=== PATIENT | male | born 1960 | race Two or more races ===

== ENCOUNTER → 2016-05-29 | Day surgery (SDC) | payer BC ==
[~2016-05-29] MED LIST: ACETAMINOPHEN 1000 MG/100 ML VIAL IV ONE; BUPIVACAINE/EPINEPHRINE 0.25% 50 ML VIAL ONE; KETOROLAC TROMETHAMINE 30 MG/ML (IVP) VIAL IV PUSH ONE; LACTATED RINGER'S 1000 ML INJ 1,000 ML ONE; LIDOCAINE 1%/EPINEPHrine 1:100,000 SOLN 20 ML VIAL ONE; MIDAZOLAM HCL 2 MG/2 ML VIAL ONE; ONDANSETRON HCL 4 MG/2 ML VIAL IV PUSH ONE; PROPOFOL 200 MG/20 ML AMP IV ONE; SODIUM CHLORIDE 0.9% 250 ML ADDBAG IV ONE; VANCOMYCIN HCL 1000 MG VIAL ONE; ceFAZolin INJ 1,000 MG VIAL ONE
--- NOTE | 2016-07-02 19:14 | MP ---
cc: THERESA SHERMAN M.D. DATE OF SURGERY 05/29/2016 PROCEDURE Left inguinal hernia repair with mesh. PREOPERATIVE DIAGNOSIS Symptomatic left inguinal hernia. POSTOPERATIVE DIAGNOSIS Indirect symptomatic reducible left inguinal hernia. ANESTHESIA LMA. SURGEON Lillian Sherman MD NEUROLOGY NURSE Uzma Thompson, [place] COMPLICATIONS None. DRAINS None SPECIMEN None. ESTIMATED BLOOD LOSS Less than 10 mL FLUIDS 950 mL crystalloid. The PRODUCE MANAGER was required for the surgical procedure and was present from the beginning to the end of the procedure. She was required for assistance in exposure and in facilitation of the procedure as well as in all technical aspects. The patient was seen in the holding area and the left side was marked by the undersigned and confirmed by the patient. The patient was taken to the operating room and placed on the operating table in the supine position. After an adequate level of anesthesia was achieved, the left groin and genitals were prepped and draped in the field. Time-out was taken confirming the correct patient, site, procedure to be performed. The skin and subcutaneous tissue was infiltrated with local anesthetic and a slightly oblique incision made in a mirror image to the patient's previous right inguinal hernia incision. Dissection was carried down to the external oblique fascia, where further subfascial injections were made with local anesthetic. The fascia was opened in the direction of the fibers and the underlying tissues swept free. The iliohypogastric nerve was identified and left in its [place] sheath and was disturbed as little as possible during the procedure. The spermatic cord structures were brought up on a [place] [employer] drain and dissection carried back to the internal ring. The patient was noted to have an indirect hernia and the hernia sac was dissected free from the spermatic cord structures and reduced back into the abdominal cavity. A 3 x 6 inch piece of atrium mesh was then brought up and fixed to the pubic tubercle with a 2-0 Prolene suture. This was then run along the shelving edge of the inguinal ligament to complete the lateral edge of the repair. The mesh was slit longitudinally and trimmed to size to fit the defect. Interrupted 2-0 Prolene suture was then placed medially and care was taken to place no sutures near the iliohypogastric nerve. Two 2-0 Prolene sutures were used to take the medial leaf of mesh and overlap it over the lateral leaf of mesh and transfix it to the inguinal ligament to create a new internal ring. This allowed for egress of the cord structures but was snug enough to minimize the risk of hernia recurrence. With hemostasis assured, 30 mL of 0.25% Marcaine with epinephrine was injected into the transversalis fascia and subcutaneous tissues. The external oblique fascia was closed with a running 3-0 Vicryl suture with care taken to exclude the underlying tissues including the iliohypogastric nerve. The subcutaneous tissue was closed with interrupted 3-0 Vicryl suture and the skin closed with 5-0 PDS in a running subcuticular fashion. The wound was dressed with Telfa and Tegaderm and the patient was taken back to the recovery room in stable condition. Sponge, needle and instrument counts were reported to be correct. The patient tolerated the procedure well. MD ERA Oliver/ /9:17 AM /7:05 PM [email or web address]
== END | disposition home or self-care (01) ==
LOC: ESDC 07:53
PROVIDERS: ATTEND Surgery Trauma Surgery
DX: K40.90 Unilateral inguinal hernia, without obstruction or gangrene, not specified as recurrent (principal)
CPT/HCPCS: 00830; 49505; C1781; J0131; J0690; J1885; J2250; J2405; J3010; J3370; J7120